=== PATIENT | female | born 1960 | race Caucasian/White ===

== ENCOUNTER → 2016-08-15 | Outpatient (CLI) | payer BC ==
[2016-08-15 16:17] LABS: Basophils # (auto) 0 uL; Basophils % (auto) 0.4 % (0.0-2.0); DEFINITIVE VIEW TRANSMISSION; Eosinophils # (auto) 0.3 uL; Eosinophils % (auto) 4.3 % (0.0-7.0); Hematocrit 45.4 % (36.0-46.0); Hemoglobin 14.1 g/dL (12.2-16.2); Lymphocytes # (auto) 2.3 uL; Lymphocytes % (auto) 33.2 % (10.0-50.0); Mean Corpuscular Hemoglobin 28.8 pg (28.0-32.0); Mean Corpuscular Hgb Conc. 31.1 g/dL (32.0-36.0); Mean Corpuscular Volume 92.6 fL (80.0-100.0); Mean Platelet Volume 9.5 fL (7.4-10.4); Monocytes # (auto) 0.4 uL; Monocytes % (auto) 6.3 % (0.0-12.0); Neutrophils # (auto) 3.9 uL; Neutrophils % (auto) 55.8 % (37.0-80.0); Platelet Count (auto) 304 10^3/uL (140-450); Red Cell Distribution Width 13.3 % (11.6-16.0)
[2016-08-15 16:42] LABS: Albumin 3.7 g/dL (3.4-5.0); BUN/Creatinine Ratio 10.9; Bilirubin, Total 0.4 mg/dL (0.2-1.0); Calcium 9.3 mg/dL (8.5-10.1); Magnesium 2.7 mg/dL (1.6-2.6); Potassium 4.5 mmol/L (3.5-5.1); Total Protein 7.6 g/dL (6.4-8.2)
== END | disposition home or self-care (01) ==
LOC: LAB 11:09
PROVIDERS: ATTEND Internal Medicine Cardiovascular Disease
DX: I10 Essential (primary) hypertension (principal); E78.00 Pure hypercholesterolemia, unspecified; K74.1 Hepatic sclerosis; E11.9 Type 2 diabetes mellitus without complications; E03.9 Hypothyroidism, unspecified; D64.9 Anemia, unspecified; N39.0 Urinary tract infection, site not specified
CPT/HCPCS: 36415; 80053; 80061; 83036; 83735; 84443; 84480; 85025

== ENCOUNTER 2021-01-26 21:07 | Emergency (ER) | payer BC, OTHER ==
[~2021-01-26] VITALS: Ht 160 cm; Wt 83.0 kg
[2021-01-26 21:29] VITALS: BP 158/86
[2021-01-26] MEDS ORDERED: IBUPROFEN 800 MG TAB PO ONE (21:30)
[2021-01-26] MEDS ORDERED: ACETAMINOPHEN 325 MG TAB PO ONE (21:30)
== END 2021-01-27 02:20 | disposition home or self-care (01) ==
LOC: EDBD 21:07 → ER 21:07
DX: S83.92XA Sprain of unspecified site of left knee, initial encounter (principal); J45.909 Unspecified asthma, uncomplicated; E78.5 Hyperlipidemia, unspecified; Z91.040 Latex allergy status; X58.XXXA Exposure to other specified factors, initial encounter; Y93.01 Activity, walking, marching and hiking; Y92.89 Other specified places as the place of occurrence of the external cause; Y99.8 Other external cause status
CPT/HCPCS: 73562

== ENCOUNTER 2021-07-30 14:57 | Inpatient (IN) | payer OTHER ==
[~2021-07-30] VITALS: Ht 170.2 cm; Wt 81.7 kg
[2021-07-30] MEDS ORDERED: methylPREDNISolone SOD SUCC 125 MG/2 ML VL IV ONE (15:15)
[2021-07-30] MEDS ORDERED: ALBUTEROL SULF 2.5 MG/0.5ML(0.5%) NEB SOLN NEB ONE (15:15)
[2021-07-30] MEDS ORDERED: IPRATROPIUM BROM 0.5 MG/2.5ML INH SOL NEB ONE (15:15)
[2021-07-30] MEDS ORDERED: HEPARIN SODIUM (PORCINE) 5000 UNITS/ML 1ML VIAL IV ONE (15:30)
[2021-07-30] MEDS ORDERED: NITROGLYCERIN 0.4 MG SL TAB SL ONE (15:30)
[2021-07-30] MEDS ORDERED: VERAPAMIL 2.5MG/ML INJ 2ML VIAL IV ONE (15:47)
[2021-07-30] MEDS ORDERED: ANGIOMAX 250 MG VIAL IV ONE (15:47)
[2021-07-30] MEDS ORDERED: MIDAZOLAM HCL 2MG/2ML 2ml VIAL (1mg/ml) ONE (15:47)
[2021-07-30] MEDS ORDERED: HEPARIN SODIUM (PORCINE) 5000 UNITS/ML 1ML VIAL ONE (15:47)
[2021-07-30] MEDS ORDERED: fentaNYL CITRATE 100 MCG/2 ML VL ONE (15:47)
[2021-07-30] MEDS ORDERED: SODIUM CHL 0.9% 50 ML ONE (15:48)
[2021-07-30] MEDS ORDERED: LIDOCAINE 2%HCL (LOCAL ANESTH.) INJ 20ML MDV ONE ×2 (15:48→16:09)
[2021-07-30] MEDS ORDERED: HEPARIN IN NS 1000Units/500mL 0 ML ONE (15:48)
[2021-07-30] MEDS ORDERED: methylPREDNISolone SOD SUCC 125 MG/2 ML VL ONE (15:49)
[2021-07-30] MEDS ORDERED: FAMOTIDINE (10MG/ML) 2ML VL IV ONE (15:51)
[2021-07-30] MEDS ORDERED: diphenhdrAMINE HCL 50 MG/1 ML VL ONE (15:51)
[2021-07-30 16:09] LABS: Basophils # (auto) 0 10 ^3/uL (0-0.2); Basophils % (auto) 0.2 % (0.0-2.0); Eosinophils # (auto) 0 10 ^3/uL (0-0.8); Eosinophils % (auto) 0.6 % (0.0-7.0); Hematocrit 38.4 % (36.0-46.0); Hemoglobin 12.7 g/dL (12.2-16.2); Lymphocytes # (auto) 0.6 10 ^3/uL (0.4-5.4); Lymphocytes % (auto) 7.9 % (10.0-50.0); Mean Corpuscular Hemoglobin 30.4 pg (28.0-32.0); Mean Corpuscular Volume 92.2 fL (80.0-100.0); Monocytes # (auto) 0.2 10 ^3/uL (0-1.3); Neutrophils # (auto) 6.8 10 ^3/uL (1.6-8.6); Neutrophils % (auto) 89.3 % (37.0-80.0); Red Blood Cells 4.17 10^6/uL (4.0-5.20); Red Cell Distribution Width 13.1 % (11.8-14.3); White Blood Cell 7.7 10^3/uL (4.4-10.8)
[2021-07-30] MEDS ORDERED: IODIXANOL 320MG/ML 100ML BTL IV ONE ×2 (16:09→16:37)
[2021-07-30] MEDS ORDERED: HEPARIN IN NS 1000Units/500mL 1,500 ML ONE (16:11)
[2021-07-30 16:26] LABS: Potassium 3.9 mmol/L (3.5-5.1)
[2021-07-30 16:35] LABS: Albumin 3.6 g/dL (3.4-5.0); BUN/Creatinine Ratio 13.7; Bilirubin, Total 0.3 mg/dL (0.2-1.0); Calcium 8.3 mg/dL (8.5-10.1); Total Protein 6.5 g/dL (6.4-8.2)
[2021-07-30] MEDS ORDERED: MORPHINE SULFATE INJECTION 2 MG/ML SYRG IV PRN ×2 (17:00→18:00)
[2021-07-30] MEDS ORDERED: NITROGLYCERIN 0.4 MG SL TAB SL PRN ×2 (17:00→18:00)
[2021-07-30] MEDS ORDERED: MORPHINE SULFATE INJECTION 2 MG/ML SYRG ONE (17:04)
[2021-07-30] MEDS ORDERED: MORPHINE SULFATE INJECTION 2 MG/ML SYRG IV ONE (17:15)
[2021-07-30] MEDS ORDERED: PANTOPRAZOLE 40 MG/10 ML VIAL INJ IV ONE (18:15)
[2021-07-30 19:30] LABS: INR 0.95 (0.9-1.15); Partial Thromboplastin Time 23.9 sec (23.6-33.0)
[2021-07-30 20:00] VITALS: BP 130/71
[2021-07-30] MEDS ORDERED: OMEP-434 PO (22:28)
[2021-07-30] MEDS ORDERED: BUDE1AER5 IN (22:28)
[2021-07-30] MEDS ORDERED: ROSU40TA PO (22:28)
[2021-07-30] MEDS ORDERED: LEVO150T10 PO (22:28)
[2021-07-30] MEDS ORDERED: BUPR200T2 PO (22:28)
[2021-07-30] MEDS ORDERED: CHOL20007 PO (22:28)
[2021-07-31 05:00] VITALS: BP 122/65
[2021-07-31] MEDS: PANTOPRAZOLE 40 MG/10 ML VIAL INJ IV SCH (09:05)
[2021-07-31 09:27] VITALS: BP 126/77
[2021-07-31] MEDS ORDERED: ACETAMINOPHEN 325 MG TAB PO PRN (11:15)
[2021-07-31] MEDS ORDERED: LISINOPRIL 20 MG TAB PO ONE (12:00)
[2021-07-31] MEDS ORDERED: METOPROLOL TARTRATE 25 MG TAB PO ONE (12:00)
[2021-07-31] MEDS ORDERED: ATORVASTATIN 20 MG TAB PO ONE (12:00)
[2021-07-31] MEDS ORDERED: ASPirin 81 mg TAB PO ONE (12:00)
[2021-07-31 12:47] VITALS: BP 108/75
[2021-07-31 14:12] LABS: Cholesterol 200 mg/dL (< 200); Triglycerides 56 mg/dL (< 150)
[2021-07-31 14:14] LABS: HDL Cholesterol 85 mg/dL (40-59); LDL Cholesterol 99 mg/dL (< 100)
[2021-07-31 16:34] VITALS: BP 94/56
[2021-07-31 22:00] VITALS: BP 102/61
[2021-07-31] MEDS ORDERED: METOPROLOL TARTRATE 25 MG TAB PO SCH (22:00)
[2021-07-31] MEDS: METOPROLOL TARTRATE 25 MG TAB PO SCH (23:15)
[2021-08-01 05:00] VITALS: BP 91/58
[2021-08-01 09:08] VITALS: BP 98/5
[2021-08-01] MEDS: PANTOPRAZOLE 40 MG/10 ML VIAL INJ IV SCH (09:42)
[2021-08-01] MEDS: METOPROLOL TARTRATE 25 MG TAB PO SCH (10:00)
[2021-08-01] MEDS ORDERED: LISINOPRIL 20 MG TAB PO SCH (10:00)
[2021-08-01] MEDS ORDERED: ASPirin 81 mg TAB PO SCH (10:00)
[2021-08-01] MEDS ORDERED: METO25TA5 PO (10:24)
[2021-08-01] MEDS ORDERED: ASPI-498 OR (10:24)
[2021-08-01] MEDS ORDERED: ATO40T PO (10:24)
[2021-08-01 12:44] VITALS: BP 93/57
[2021-08-01 13:28] VITALS: BP 103/64
[2021-08-01] MEDS ORDERED: ATORVASTATIN 20 MG TAB PO SCH (22:00)
== END 2021-08-01 15:50 | disposition home or self-care (01) | DRG 281 ==
LOC: ER 14:57 → EDBD 14:57 → TELE 18:01 → TELE-WESTW 18:40
PROVIDERS: ADMIT Hospitalist; ATTEND Family Medicine
PROC: 4A023N7 Measurement of Cardiac Sampling and Pressure, Left Heart, Percutaneous Approach (ICD-10-PCS; principal; 2021-07-30)
PROC: B2151ZZ Fluoroscopy of Left Heart using Low Osmolar Contrast (ICD-10-PCS; 2021-07-30)
PROC: B2111ZZ Fluoroscopy of Multiple Coronary Arteries using Low Osmolar Contrast (ICD-10-PCS; 2021-07-30)
PROC: 04HY32Z Insertion of Monitoring Device into Lower Artery, Percutaneous Approach (ICD-10-PCS; 2021-07-30)
PROC: B41F1ZZ Fluoroscopy of Right Lower Extremity Arteries using Low Osmolar Contrast (ICD-10-PCS; 2021-07-30)
DX: I51.81 Takotsubo syndrome (principal); I21.4 Non-ST elevation (NSTEMI) myocardial infarction; K50.90 Crohn's disease, unspecified, without complications; Z20.822 Contact with and (suspected) exposure to COVID-19; E03.9 Hypothyroidism, unspecified; E88.09 Other disorders of plasma-protein metabolism, not elsewhere classified; I10 Essential (primary) hypertension; I70.0 Atherosclerosis of aorta; J45.909 Unspecified asthma, uncomplicated; Z87.442 Personal history of urinary calculi; Z88.6 Allergy status to analgesic agent; Z91.041 Radiographic dye allergy status; Z91.040 Latex allergy status; Z79.899 Other long term (current) drug therapy
CPT/HCPCS: 36415; 71045; 78582; 80053; 80061; 84484; 85025; 85379; 85610; 85730; 87426; 93005; 93458; 93970; 96374; 96375; 96376; 99152; 99153; C9113; G0378; J2250; J3490; Q9967